=== PATIENT | female | born 1960 | race Asian ===

== ENCOUNTER 2018-12-23 08:11 | Outpatient (CLI) | payer SELFPAY | END 2018-12-23 08:12 | disposition EMS.NT | LOC: EMS 08:11 | PROVIDERS: ATTEND Surgery | DX: R41.0 Disorientation, unspecified (principal); R73.09 Other abnormal glucose ==

== ENCOUNTER 2021-12-16 12:51 | Emergency (ER) | payer OTHER ==
--- NOTE | 2021-12-16 14:36 | XRAY Report ---
PROCEDURE: Knee 3 View LT INDICATIONS: L knee pain TECHNIQUE: 3 views of the left knee(s) were acquired. COMPARISON: None. FINDINGS: Bones: No fractures or dislocations. No suspicious bony lesions. Soft tissues: No joint effusion. No suspicious soft tissue calcifications. IMPRESSION: No acute left knee fracture or dislocation. No significant joint effusion. Reviewed by: Clint Dominguez MD on 12/16/2021 2:35 PM PDT Approved by: Clint Dominguez MD on 12/16/2021 2:35 PM PDT Station ID: [id number]
--- NOTE | 2021-12-16 14:41 | CT Report ---
PROCEDURE: HEAD WO INDICATIONS: head injury TECHNIQUE: Noncontrast 4.5 mm thick angled axial sections acquired from the foramen magnum to the vertex. For r adiation dose reduction, the following was used: automated exposure control, adjustment of mA and/or kV according to patient size. COMPARISON: None. FINDINGS: Image quality: Excellent. CSF spaces: Basal cisterns are patent. No extra-axial fluid collections. Ventricles are normal in size and shape. Brain: No midline shift. No intracranial masses or hemorrhage. Redman-white matter interface is norm al. Skull and face: Calvarium and visualized facial bones are intact, without suspicious lesions. Sinuses: Visualized sinuses and mastoids are clear. IMPRESSION: No acute intracranial abnormality. Reviewed by: Vielka Miller MD on 12/16/2021 2:39 PM PDT Approved by: Vielka Miller MD on 12/16/2021 2:39 PM PDT Station ID: [id number]
--- NOTE | 2021-12-16 14:43 | CT Report ---
PROCEDURE: MAXILLOFACIAL WO INDICATIONS: facial injury TECHNIQUE: Noncontrast 1.5 mm thick axial images acquired from the mandible through the frontal sinuses, with co dean and sagittal reformatting. For radiation dose reduction, the following was used: automated ex posure control, adjustment of mA and/or kV according to patient size. COMPARISON: None. FINDINGS: Image quality: Excellent. Bones and teeth: Orbital morocho are intact. Sinus morocho show no fracture or deformity. Nasal bones and septum are intact. Visualized portions of the mandible demonstrate no fractures or subluxation. Zygomatic arches are intact. Pterygoid plates are intact. Visualized portions of the skull base an d auditory canals are intact. Sinuses: Paranasal sinuses are aerated, without fluid levels, mucosal thickening, or mucoceles. Mas toid air cells are aerated. Soft tissues: No edema, masses, or fluid collections. No enlarged lymph nodes. No soft tissue lace rations or debris. Vascular: Visualized vascular structures appear normal in the absence of contrast. Bony vascular fo ramina and canals are intact. IMPRESSION: No fracture. Reviewed by: Vielka Miller MD on 12/16/2021 2:42 PM PDT Approved by: Vielka Miller MD on 12/16/2021 2:42 PM PDT Station ID: [id number]
--- NOTE | 2021-12-16 14:59 | ED Physician Documentation ---
PD HPI HEAD INJURY - Stated complaint Stated Complaint: FALL - Chief complaint Chief Complaint: Trauma Hd/Nk - History obtained from History obtained from: Patient - Additional information Additional information: Patient is a 61-year-old female presenting for evaluation of head injury and facial abrasion which occurred yesterday. 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 She fell onto her face. She did hit her head. She did not lose consciousness. She reports abrasion to the face and chipped tooth. She does not take a blood thinner. She has been able to ambulate and denies headache. She has not taken anything for pain. She also reports pain to the left knee. Review of Systems Constitutional: denies: Fever Nose: denies: Congestion Throat: denies: Sore throat Cardiac: denies: Chest pain / pressure Respiratory: denies: Dyspnea GI: denies: Abdominal Pain : denies: Dysuria Skin: reports: Abrasion (s) Musculoskeletal: denies: Back pain Neurologic: reports: Head injury. denies: Syncope PD PAST MEDICAL HISTORY - Past Medical History Past Medical History: Yes Cardiovascular: Hypertension, High cholesterol Respiratory: None Neuro: None Endocrine/Autoimmune: Type 2 diabetes GI: None AUTO SERVICE ADVISOR: None : Renal insuffiency HEENT: None Psych: None Musculoskeletal: Gout Derm: None - Past Surgical History Past Surgical History: Yes /AUTO SERVICE ADVISOR: Mastectomy - Present Medications Home Medications: Ambulatory Orders Medication Instructions Recorded Confirmed Atenolol [Tenormin] 50 mg PO DAILY 08/14/20 12/16/21 Atorvastatin [Lipitor] 40 mg PO DAILY 08/14/20 12/16/21 SITagliptin [Januvia] 100 mg PO DAILY 12/16/21 12/16/21 Telmisartan/Hydrochlorothiazid 1 tab ORAL DAILY 12/16/21 12/16/21 [Telmisartan-Hctz 80-25 mg Tab] glipiZIDE [Glipizide ER] 2.5 mg ORAL DAILY 12/16/21 12/16/21 - Allergies Allergies/Adverse Reactions: Allergies Allergy/AdvReac Type Severity Reaction Status Date / Time No Known Drug Allergies Allergy Verified 12/16/21 13:01 - Social History Does the pt smoke?: No Smoking Status: Never smoker Does the pt drink ETOH?: No Does the pt have substance abuse?: No - Immunizations Immunizations are current?: Yes PD ED PE NORMAL - General General: Alert and oriented X 3, No acute distress, Well developed/nourished - HEENT HEENT: PERRL, EOMI, Ears normal, Moist mucous membranes, Pharynx benign, Other (Abrasion to mid upper lip) - Neck Neck: Supple, no meningeal sign, No bony TTP, C-Spine cleared by NEXUS criteria - Cardiac Cardiac: RRR, No murmur - Respiratory Respiratory: No respiratory distress, Clear bilaterally - Abdomen Abdomen: Non tender, Non distended - Derm Derm: Warm and dry - Extremities Extremities: No tenderness to palpate, Normal ROM s pain, Other (Mild tenderness to left knee with no deformity, normal range of motion) - Neuro Neuro: Alert and oriented X 3, 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, No motor deficit, No sensory deficit, Normal speech Eye Opening: Spontaneous Motor: Obeys Commands Verbal: Oriented GCS Score: 15 PD ED PE EXPANDED - HEENT HEENT Visual: 1 - deformity (Chipped tooth) 2 - abrasion Results - Vitals Vitals: Vital Signs - 24 hr 12/16/21 12/16/21 12:56 15:08 Temperature 36.1 C L 36.4 C L Heart Rate 63 62 Respiratory 16 16 Rate Blood Pressure 142/62 H 114/64 O2 Saturation 100 100 Oxygen O2 Source Room air PD MEDICAL DECISION MAKING - ED course Complexity details: reviewed results, re-evaluated patient ED course: Patient with ground-level fall yesterday while at work. C-spine cleared by Nexus criteria. Patient has abrasion to lip with no signs of infection. CT head and facial bones were obtained with no bony injury or intracranial hemorrhage. X-ray of her left knee is also normal. Patient is ambulatory with normal neuro exam. She was counseled on continuing with supportive care and comfortable with plan for discharge. She does have small injuries to teeth which I recommended close follow-up with her dentist. Departure - Departure Disposition: 01 Home, Self Care Clinical Impression: Facial abrasion Qualifiers: Encounter type: initial encounter Qualified Code(s): S00.81XA - Abrasion of other part of head, initial encounter Head injury Qualifiers: Encounter type: initial encounter Qualified Code(s): S09.90XA - Unspecified injury of head, initial encounter Strain of left knee Qualifiers: Encounter type: initial encounter Qualified Code(s): S86.912A - Strain of unspecified muscle(s) and tendon(s) at lower leg level, left leg, initial encounter Condition: Stable Instructions: ED Contusion Face Follow-Up: AVANI KUMAR MD [Primary Care Provider] - Comments: You were evaluated after a fall. A CT scan of your head and facial bones does not show any fractures or internal bleeding. An x-ray of your knee is also negative for a fracture. I would recommend close follow-up with your dentist regarding your chipped teeth. Please continue with acetaminophen as needed for any aches or pains. Please also follow-up with your primary care doctor as needed. Discharge Date/Time: 12/16/21 15:09
[2021-12-16 15:09] VITALS: BP 114/64
== END 2021-12-16 15:09 | disposition home or self-care (01) ==
LOC: ED 12:51
DX: S00.81XA Abrasion of other part of head, initial encounter (principal); S86.912A Strain of unspecified muscle(s) and tendon(s) at lower leg level, left leg, initial encounter; W01.0XXA Fall on same level from slipping, tripping and stumbling without subsequent striking against object, initial encounter; I10 Essential (primary) hypertension; E11.9 Type 2 diabetes mellitus without complications; Z79.84 Long term (current) use of oral hypoglycemic drugs
CPT/HCPCS: 99282; 99284